=== PATIENT | female | born 1980 | race Caucasian/White ===

== ENCOUNTER 2018-06-18 13:23 | Emergency (ER) | payer MEDICAID, SELFPAY ==
[2018-06-18 13:24] VITALS: BP 128/74; PULSE 82; RESP 18; TEMP 36.7; O2SAT 98; BMI 29.4
[2018-06-18 13:33] VITALS: BP 133/82; PULSE 81; RESP 16; O2SAT 96
--- NOTE | 2018-06-18 13:41 | ED.VISSUMM ---
- ER Visit Summary Date of Service: 06/18/18 Chief Complaint: Back pain History of Present Illness: The patient is a 37 F who meant to lift a basket of laundry and felt a pop in her lower back. She has had pain since that time. Incident occurred just prior to arrival. She has no anterior abdominal pain. Pain does not radiate into her legs. She has no problems with bowel or bladder control. Physical Examination: Vital signs are unremarkable. Patient sitting upright in bed no acute distress. Head neck examination is unremarkable. Heart is regular rate and rhythm. Lung sounds are clear. Abdomen is soft nontender. No palpable masses. Back examination reveals no thoracic or lumbar midline tenderness. She does have reproducible tenderness in the bilateral lumbar paraspinal muscles. Straight leg raise in the seated position is negative. She has good strength and sensation. There is no pain with logroll of her legs. Palpable and equal distal pulses are noted. Test Results: [] Emergency Department Course and Treatment: Patient is given Naprosyn and Flexeril, with prescriptions for the same. At this time I do not think imaging is beneficial. Treatment Plan: [] Disposition: Discharge Impression: Lumbar paraspinal strain This note was generated with [employer] dictation software. It may contain incorrect words, spelling, and punctuation that were not noted in review of the chart prior to signing ED Disposition - Plan for ED Patient: Chief Complaint: Back Referrals: Agnes Torres MD [Primary Care Provider] -
--- NOTE | 2018-06-18 13:42 | ED.DEP ---
ED Disposition - Plan for ED Patient: Disposition: Home or Assisted Living Chief Complaint: Back Instructions: ED Sprain Strain Lumbar Prescriptions: Naproxen [Naprosyn] 500 mg PO BID PRN PRN #20 tablet PRN Reason: Pain Cyclobenzaprine [Flexeril] 10 mg PO TID PRN #20 tablet PRN Reason: Muscle Spasm Referrals: Agnes Torres MD [Primary Care Provider] - 1 Week if not improving
[2018-06-18] MEDS: Naproxen 500 MG Tablet PO (13:59)
[2018-06-18 14:00] VITALS: BP 133/94; PULSE 87; RESP 16; O2SAT 98
== END 2018-06-18 14:04 | disposition home or self-care (01) ==
LOC: ED 13:59
PROVIDERS: Emergency Provider Emergency Medicine; Family Provider Internal Medicine; PCP Internal Medicine
DX: S39.012A Strain of muscle, fascia and tendon of lower back, initial encounter (principal); X50.9XXA Other and unspecified overexertion or strenuous movements or postures, initial encounter; Y93.9 Activity, unspecified; Y92.9 Unspecified place or not applicable
CPT/HCPCS: 99282

== ENCOUNTER 2018-08-31 21:10 | Emergency (ER) | payer MEDICAID, SELFPAY ==
[2018-08-31 21:11] VITALS: BP 139/90; PULSE 80; RESP 16; TEMP 36.6; O2SAT 97; BMI 29.7
--- NOTE | 2018-08-31 21:25 | ED.DCSUM_ITS ---
- ER Visit Summary Date of Service: 08/31/18 Chief Complaint: [Headache] History of Present Illness: The patient is a 38 F [presents the emergency department with a headache that started about an hour ago. Patient rates her pain an 8 out of 10. Patient describes throbbing to both sides of her head and the top of her head. She currently rates her headache as an 8 out of 10. Patient states that she is vomited 3 or 4 times. Patient states the headache came on gradually. Patient does describe some photophobia. Patient states headache is typical of her migraines. Patient denies any falls or head injuries. She denies any recent illness. Patient states she has been in the ER before for these headaches and is gotten a migraine cocktail.] Physical Examination: [HEENT-PERRLA, EOMI. Cranial nerves II through XII grossly intact. TMs clear. Mucous membranes moist. No adenopathy. Cardiovascular-regular rate and rhythm without murmur or ectopy Lungs-clear to auscultation, chest wall stable without crepitus or subcu emphysema Abdomen-normoactive bowel sounds, soft, nontender, no rebound or rigidity, no peritoneal signs. Neuro logf-[id number]-wwom and heel walter testing within normal limits, negative Romberg, negative pronator drift, fundi benign Extremities-intact ?4, normal range of motion, normal pulses, atraumatic] Test Results: [None indicated] Emergency Department Course and Treatment: [Patient received a liter normal same fluid bolus as well as Reglan, Benadryl, and Toradol.] Patient's headache improved and now rates it a 4 out of 10. Patient is now anything further for pain at this time. Treatment Plan: [Patient follow-up with primary care physician next 3-5 days.] Disposition: [Discharged home in stable condition. Patient advised to return if worsening headache, difficulty with balance or speech, or condition should worsen anyway.] Impression: [Migrainous cephalgia] This note was generated with [employer] dictation software. It may contain incorrect words, spelling, and punctuation that were not noted in review of the chart prior to signing ED Disposition - Plan for ED Patient: Chief Complaint: Headache Referrals: Agnes Torres MD [Primary Care Provider] -
[2018-08-31] MEDS: 0.9% Normal Saline 1,000 ML 1000 ML IV (21:30)
[2018-08-31] MEDS: DiphenhydrAMINE 50 MG/ML Syringe 25 MG IV (21:34)
[2018-08-31] MEDS: Ketorolac 30 MG/ML Syringe IV (21:35)
[2018-08-31] MEDS: Metoclopramide 10 MG/2 ML Vial IV (21:35)
[2018-08-31 21:36] VITALS: RESP 14
--- NOTE | 2018-08-31 22:25 | ED.DEP ---
ED Disposition - Plan for ED Patient: Chief Complaint: Headache Instructions: ED Headache Migraine Referrals: Agnes Torres MD [Primary Care Provider] - 3-5 Days
== END 2018-08-31 22:33 | disposition home or self-care (01) ==
LOC: ED 21:23
PROVIDERS: Emergency Provider Emergency Medicine; Family Provider Internal Medicine; PCP Internal Medicine
DX: G43.909 Migraine, unspecified, not intractable, without status migrainosus (principal)
CPT/HCPCS: 96361; 96374; 96375; 99283; J7030

== ENCOUNTER 2018-12-28 15:03 | Emergency (ER) | payer MEDICAID, SELFPAY ==
[2018-12-28 15:04] VITALS: BP 141/88; PULSE 82; RESP 17; TEMP 36.4; O2SAT 100; BMI 30.2
--- NOTE | 2018-12-28 15:33 | ED.VISSUMM ---
- ER Visit Summary Date of Service: 12/28/18 Chief Complaint: Headache History of Present Illness: The patient is a 38 F with a headache that came on gradually over the past 2 days. It is severe. Patient tried taking Excedrin and her amitriptyline, with no improvement. She has a history of migraines. Denies any new symptoms or historical features. No blood thinners or trauma. No fevers. Associated with nausea. Physical Examination: Afebrile and vital signs unremarkable. Patient is alert and oriented no acute distress. Sitting in a dark room. HEENT exam unremarkable. Cranial nerves grossly intact. Neck nontender with good range of motion. Heart regular. Lungs clear. Extremities nontender with no edema. Neurovascularly intact and symmetric x4. No focal or lateralizing neurologic abnormalities grossly. Test Results: None indicated Emergency Department Course and Treatment: Patient will be treated with migraine cocktail with Compazine, Benadryl, Toradol. No diagnostic testing or imaging is indicated. Patient will be reevaluated and discharged when improved. Treatment Plan: As above Disposition: Discharge Impression: 1. Acute cephalgia This note was generated with [employer] dictation software. It may contain incorrect words, spelling, and punctuation that were not noted in review of the chart prior to signing ED Disposition - Plan for ED Patient: Referrals: Agnes Torres MD [Primary Care Provider] -
--- NOTE | 2018-12-28 15:35 | ED.DEP ---
ED Disposition - Plan for ED Patient: Instructions: ED Cephalgia Unspecified Referrals: Agnes Torres MD [Primary Care Provider] -
[2018-12-28] MEDS: Ketorolac 30 MG/ML Syringe IV (15:42)
[2018-12-28] MEDS: proCHLORPERazine 10 MG/2 ML Vial IV (15:42)
[2018-12-28] MEDS: DiphenhydrAMINE 50 MG/ML Syringe IV (15:43)
[2018-12-28 16:19] VITALS: BP 125/74; PULSE 73; RESP 16; O2SAT 100
== END 2018-12-28 16:20 | disposition home or self-care (01) ==
LOC: ED 15:36
PROVIDERS: Emergency Provider Emergency Medicine; Family Provider Internal Medicine; PCP Internal Medicine
DX: R51 Headache (principal)
CPT/HCPCS: 96374; 96375; 99284; A4216

== ENCOUNTER 2019-04-16 15:42 | Emergency (ER) | payer MEDICAID, SELFPAY ==
[2019-04-16 15:43] VITALS: BP 132/80; PULSE 88; RESP 16; TEMP 36.6; O2SAT 100; BMI 29.5
[2019-04-16] MEDS: Ketorolac 30 MG/ML Syringe IM (17:42)
[2019-04-16] MEDS: DiphenhydrAMINE 50 MG/ML Syringe IM (17:45)
[2019-04-16] MEDS: proCHLORPERazine 10 MG/2 ML Vial IM (17:46)
--- NOTE | 2019-04-16 18:26 | ED.DCSUM_ITS ---
- ER Visit Summary Date of Service: 04/16/19 Chief Complaint: Headache History of Present Illness: The patient is a 38 F with a history of migraines who presents with a headache. The pain is bitemporal. She has had it for 4 days since a wake up. No other neurologic symptoms. She tried amitriptyline, but nothing seems to help. Denies trauma. Denies blood thinners. Denies fevers. Denies new neurologic symptoms. Physical Examination: Afebrile and vital signs unremarkable. Head and neck atraumatic. HEENT exam unremarkable. Cranial nerves normal. Heart regular. Lungs clear. Skin normal. No focal or lateralizing neurologic abnormalities. Test Results: None indicated Emergency Department Course and Treatment: Patient was treated with Compazine, Benadryl, Toradol. She had modest improvement and requested discharge. There is no indication for further testing or imaging. Patient will be discharged to follow-up with her outpatient doctor. Return for any new or worsening issues. Treatment Plan: As above Disposition: Discharge Impression: 1. Migraine This note was generated with [employer] dictation software. It may contain incorrect words, spelling, and punctuation that were not noted in review of the chart prior to signing ED Disposition - Plan for ED Patient: Referrals: Agnes Torres MD [Primary Care Provider] -
--- NOTE | 2019-04-16 18:28 | ED.DEP ---
ED Disposition - Plan for ED Patient: Instructions: ED, Migraine (Classical) Referrals: Agnes Torres MD [Primary Care Provider] -
[2019-04-16 18:33] VITALS: BP 124/80; PULSE 81; RESP 16; O2SAT 100
== END 2019-04-16 18:35 | disposition home or self-care (01) ==
LOC: ED 17:39
PROVIDERS: Emergency Provider Emergency Medicine; Family Provider Internal Medicine; PCP Internal Medicine
DX: G43.909 Migraine, unspecified, not intractable, without status migrainosus (principal)
CPT/HCPCS: 96372; 99282

== ENCOUNTER 2020-10-08 16:27 | Emergency (ER) | payer MEDICAID, SELFPAY ==
[2020-10-08 16:28] VITALS: BP 121/87; PULSE 82; RESP 14; TEMP 36.1; O2SAT 99; BMI 34.7
--- NOTE | 2020-10-08 16:48 | ED.VIS.HA ---
History of Present Illness Chief Complaint: Headache Informant: Patient Onset: Weeks - 1 Context: Gradual Timing: Continuous Quality: Similar Prior Headaches Location: bifrontal/bitemporal, today more right temporo-parietal Current Severity: Moderate Maximum Severity: Moderate Worsened by: light Relieved by: nothing Associated Symptoms: Nausea, Photophobia. Negative for: Fever, Vomiting, Sore Throat, Sinus Pressure, Numbness, Tingling, Preceding Aura, Visual Changes, Blurred Vision, Visual Loss Injury: - - no injury Narrative: Patient states she has a history of migraines like this and is having trouble getting this 1 to go away and stay away. 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 No recent illness, fevers, chills, cough, neck stiffness, confusion, or other new symptoms she is not used to with her headaches. - Past Medical History (1) Migraine headache Status: Chronic Past Medical History - Allergies and Home Meds Allergies/Adverse Reactions: Allergies No Known Allergies Allergy (Verified 10/08/20 16:30) Primary Care Physician: Agnes Torres MD [Primary Care Provider] - Surgical History: - - cyst drained. Lives: With Family Smoking Status: Never smoker - Family History Maternal Family History: Reports: Asthma, Hypertension, - - maternal grandma with dm Paternal Family History: Reports: Unknown Review of Systems General: Denies: Chills, Fever, Sweats Eyes: Reports: - - Photophobia. Denies: Visual changes - bilaterally, Diplopia ENT: Denies: Bilateral ear pain, Rhinorrhea, Sore throat Cardiovascular: Denies: Chest pain, Palpitations Respiratory: Denies: Dyspnea, Cough, Dyspnea on exertion Gastrointestinal: Reports: Nausea. Denies: Abdominal pain, Vomiting, Diarrhea, Melena, Hematochezia Genitourinary: Denies: Dysuria, Hematuria, Frequency Musculoskeletal: Denies: Back pain, Extremity Pain Skin: Denies: Rash, Wounds Neurological: Reports: Headache. Denies: Weakness, Numbness Physical Exam Vital Signs/Narrative: Vital Signs Temp Pulse Resp BP Pulse Ox 10/08/20 16:28 96.9 F L 82 14 121/87 H 99 Inital Vital Signs reviewed: Yes General: Well nourished, Well developed, - - Well-appearing no distress Head: NC, AT Eyes: Perrl, EOMI, - - Mild photophobia ENT: Moist mucous membranes, No rhinorrhea Neck: Supple, No Lymphadenopathy, Nontender, No Meningismus Cardiovascular: Regular rate, Regular rhythm, No murmurs Respiratory: No distress, CTA bilaterally, Chest nontender Abdomen: Soft, Nontender, Nondistended, Normal bowel sounds Back: Nontender, Normal Inspection Extremities: Nontender, No edema Skin: Normal color, No rash Neuro: Alert, Oriented x3, Cranial nerves II-XII grossly intact, Normal Strength, Normal Sensation, Normal Gait Psychological: Normal affect, Normal Mood Diagnostic/Tx/Re-eval - Medical Decision Making Benign exam. Neurologically intact. Patient was treated with Reglan and Toradol and states on reevaluation that her headache is resolved and she did not develop any EPS. Given appropriate discharge instructions. ED Disposition - Plan for ED Patient: Disposition: Home or Assisted Living Diagnosis: Migraine headache Instructions: ED, Migraine (Classical) Referrals: Agnes Torres MD [Primary Care Provider] - As Needed
[2020-10-08] MEDS: Ketorolac 30 MG/ML Syringe IV (17:16)
[2020-10-08] MEDS: Metoclopramide 10 MG/2 ML Vial IV (17:16)
[2020-10-08 18:19] VITALS: PULSE 76; RESP 16; O2SAT 97
== END 2020-10-08 18:22 | disposition home or self-care (01) ==
PROVIDERS: Emergency Provider Emergency Medicine; PCP Internal Medicine
DX: G43.909 Migraine, unspecified, not intractable, without status migrainosus (principal)
CPT/HCPCS: 96374; 96375; 99283; A4216

== ENCOUNTER 2020-11-27 20:01 | Emergency (ER) | payer MEDICAID, SELFPAY ==
[2020-11-27 20:02] VITALS: BP 162/99; PULSE 89; RESP 16; TEMP 36.6; O2SAT 100; BMI 36.7
--- NOTE | 2020-11-27 20:17 | ED.DCSUM_ITS ---
- ER Visit Summary Date of Service: 11/27/20 Chief Complaint: Headache History of Present Illness: The patient is a 40 F presenting with headache. Patient states this started 2 to 3 days ago. Headache was gradual in onset. She has a history of migraine headaches and this feels similar to her previous migraines. She denies fever or neck pain. Denies nausea or vomiting. She complains of pain to the right side of her head. No recent trauma. She has tried Excedrin Migraine at home. She denies other complaints. Physical Examination: Vitals are stable. Patient is afebrile. Alert no acute distress. HEENT exam is unremarkable. Neck is supple. No meningismus Lungs are clear and equal bilaterally. Heart is regular rate and rhythm. Abdomen is soft nontender nondistended. Extremities are unremarkable. Skin is warm and dry. No focal neurologic deficit. Remainder of exam is unremarkable. Emergency Department Course and Treatment: Patient was given Reglan, Benadryl, and Toradol IV. On reevaluation, patient is feeling much improved. She is advised to follow-up with her primary care physician. Advised return to the ED for worsening complaints. Disposition: Discharge home Impression: Headache This note was generated with [employer] dictation software. It may contain incorrect words, spelling, and punctuation that were not noted in review of the chart prior to signing ED Disposition - Plan for ED Patient: Instructions: ED Headache Unspecified Referrals: Agnes Torres MD [Primary Care Provider] -
--- NOTE | 2020-11-27 20:19 | ED.DEP ---
ED Disposition - Plan for ED Patient: Instructions: ED Headache Unspecified Referrals: Agnes Torres MD [Primary Care Provider] -
[2020-11-27] MEDS: Metoclopramide 10 MG/2 ML Vial 5 MG IV (20:22)
[2020-11-27] MEDS: Ketorolac 15 MG/ML Vial IV (20:23)
[2020-11-27] MEDS: DiphenhydrAMINE 50 MG/ML Syringe 25 MG IV (20:24)
[2020-11-27 21:42] VITALS: BP 128/78; PULSE 78; RESP 18; TEMP 36.6; O2SAT 97
== END 2020-11-27 21:52 | disposition home or self-care (01) ==
LOC: ED 20:48
PROVIDERS: Emergency Provider Emergency Medicine; PCP Internal Medicine
DX: R51.9 Headache, unspecified (principal)
CPT/HCPCS: 99283; A4216

== ENCOUNTER 2021-03-06 16:09 | Emergency (ER) | payer MEDICAID, SELFPAY ==
[2021-03-06 16:10] VITALS: BP 150/95; PULSE 89; RESP 18; TEMP 35.8; BMI 34.2
--- NOTE | 2021-03-06 16:48 | EDS_ITS ---
HPI History of Present Illness Chief Complaint: Headache Informant: patient Narrative Narrative: 40-year-old female presents with migraine headache. Symptoms began approximately 2 days ago left temporal. She states it started off very gradual but has intensified today. She notes nausea and light sensitivity. She notes some phonophobia. No fevers or chills. No neurologic deficits. She denies any preceding aura. She takes amitriptyline daily for the prevention of migraines. Her last ED visit was in November. She states her symptoms today are very typical for her migraines. No recent trauma [facility] Medical History Migraine Home Medications [id number] [Excedrin Migraine Caplet] 1 ea PO DAILY PRN 06/18/18 [History Last Taken Unknown] cetirizine [Zyrtec] 10 mg PO DAILY 06/18/18 [History Last Taken Unknown] amitriptyline 30 mg PO QHS 04/16/19 [History Last Taken Unknown] Allergy/AdvReac Type Severity Reaction Status Date / Time No Known Allergies Allergy Verified 03/06/21 16:12 no surgical history (Noncontributory) Social History (Updated 03/06/21 @ 16:[address] Vargas Puente DO) Smoking Status: Never smoker substance use type: does not use ROS ROS ED Constitutional Constitutional ED: Denies chills or weight loss Eyes Eyes: Reports other Details: Light sensitivity ; Denies change in vision or diplopia ENT ENT ED: Reports other Details: Phonophobia ; Denies ear pain, rhinorrhea or sore throat Cardiovascular Cardiovascular: Denies chest pain, orthopnea, palpitations or racing heartbeat Respiratory/Chest Respiratory/Chest: Denies cough, dyspnea or orthopnea Gastrointestinal Gastrointestinal: Denies abdominal pain, diarrhea, nausea or vomiting Genitourinary Genitourinary ED: Denies dysuria, hematuria or urinary frequency Musculoskeletal Musculoskeletal: Denies arthralgias or myalgias Integumentary Denies abscess or rash Neurologic Neurologic: Reports headache(s); Denies weakness Psychiatric Psychiatric: Denies anxiety, depression, suicidal ideation or suicidal thoughts Endocrine Endocrinology: Denies polydipsia, polyphagia or polyuria Allergic/Immunologic Allergic/Immunologic ED: Denies mouth swelling, tongue swelling or urticaria EXAM Physical Exam Narrative Exam Narrative: Very pleasant 40-year-old female laying in a darkened room. She is conversant. Const Vital Signs: 03/06/21 16:10 Temperature 96.5 F L Temperature Source Temporal Pulse Rate 89 Respiratory Rate 18 Blood Pressure 150/95 H Blood Pressure Mean 113 Oxygen Delivery Method Room Air Positive well nourished and well developed General Appearance ED: well developed HEENT Reports normocephalic, head/scalp atraumatic and moist mucous membranes Eyes PERRL and EOMs intact bilaterally Neck no lymphadenopathy, supple and no JVD Resp normal respiratory effort and clear to auscultation bilaterally Cardio regular rate, regular rhythm and no murmurs GI normal to inspection, nondistended, normoactive bowel sounds and non-tender Palpation: soft Back/Spine no CVA tenderness and normal ROM Extremity normal to inspection General Extremety ED: Negative for edema General Extremity: Negative for edema Neuro oriented x3 and CN's II-XII intact bilaterally Sensorium / Orientation: alert Motor Exam: strength 5/5 throughout Psych mental status grossly normal Mood & Affect: Negative for depressed or tearful Skin no rashes or lesions noted and no wounds MDM MDM MDM Narrative Medical decision making narrative: Patient received Toradol, Reglan, and Benadryl as well as IV fluids. Upon receipt Andrzej assessment she is feeling better. Okay to give her dose of Solu-Medrol. Would recommend continued Excedrin at home. She may wish to discuss abortive therapies with her doctor. Discharge Plan Triage Chief Complaint: Headache ED Provider: Vargas Puente Dx/Rx/DC Orders Clinical Impression: Migraine headache Instructions: ED, Migraine (Classical) Prescriptions: No Action Excedrin Migraine 1 EACH tablet 1 ea PO DAILY PRN (Reason: Migraine Symptoms) RF: 0 Zyrtec 10 MG capsule 10 mg PO DAILY RF: 0 amitriptyline 10 MG tablet 30 mg PO QHS RF: 0 Primary Care Provider: Agnes Torres Referrals: Agnes Torres MD [Primary Care Provider] - As Needed Disposition Disposition: Home, self care
[2021-03-06] MEDS: DiphenhydrAMINE 50 MG/ML Syringe 25 MG IV (17:26)
[2021-03-06] MEDS: Ketorolac 30 MG/ML Syringe IV (17:26)
[2021-03-06] MEDS: 0.9% Normal Saline 1,000 ML 999 ML IV (17:26)
[2021-03-06] MEDS: Metoclopramide 10 MG/2 ML Vial IV (17:26)
[2021-03-06] MEDS: MethylPREDNISolone 125 MG/2 ML Vial IV (18:20)
[2021-03-06 18:56] VITALS: BP 126/68; PULSE 63; RESP 16; O2SAT 100
== END 2021-03-06 19:00 | disposition home or self-care (01) ==
PROVIDERS: Emergency Provider Emergency Medicine; PCP Internal Medicine
DX: G43.909 Migraine, unspecified, not intractable, without status migrainosus (principal); Z79.82 Long term (current) use of aspirin; Z79.899 Other long term (current) drug therapy
CPT/HCPCS: 96361; 96374; 96375; 99283; J7030; A4216

== ENCOUNTER 2021-12-20 11:53 | Emergency (ER) | payer MEDICAID, SELFPAY ==
[2021-12-20 11:53] VITALS: BP 190/95; PULSE 93; RESP 18; TEMP 35.8; O2SAT 99; BMI 32.8
--- NOTE | 2021-12-20 12:09 | ED.VIS.CHEST ---
HPI History of Present Illness Chief Complaint: Chest Pain Informant: patient Onset/Context/Timing Onset: Today Activity at onset: sudden and sleep Timing: Continuous Quality: Positive for Aching and Sharp Location: Substernal Worsened By: Breathing Relieved By: Nothing Associated Symptoms: Positive for Dyspnea and Acid Reflux; Negative for Nausea, Vomiting, Diaphoresis, Cough, Fever, Lightheadedness and Palpitations Narrative Narrative: Patient presents with chest pain that began approximately 12 hours prior to arrival. Patient states it began rather suddenly. Patient states it has been constant. Patient describes her pain as sharp and aching. Patient states the pain is over the substernal area. Patient states it is sometimes worse with deep breathing. Patient states nothing makes it better. Patient admits to some mild shortness of breath because it hurts to take a deep breath. Patient felt some reflux symptoms when the pain began. Patient denies any nausea or vomiting. Patient denies any diaphoresis. Patient denies any lightheadedness or dizziness. CVD Risk Factors: Positive for Hypertension; Negative for Diabetes, Hypercholesterolemia, Family History 1' </=55 and Smoking PE Risk Factors: Negative for Recent Travel/Surgery, Recent Immobilization, Prior DVT or PE, Cancer and OCP + Smoking + >/=35 PFSH PFSH Medical History Hypertension Migraine Home Medications cetirizine [Zyrtec] 10 mg PO DAILY 06/18/18 [History Last Taken Unknown] amlodipine 2.5 mg PO DAILY 12/20/21 [History Last Taken Unknown] topiramate 25 mg PO QHS 12/20/21 [History Last Taken Unknown] Allergy/AdvReac Type Severity Reaction Status Date / Time No Known Allergies Allergy Verified 12/20/21 11:55 Surgical History no surgical history no surgical history Social History Smoking Status: Never smoker substance use type: does not use ROS ROS ED Constitutional Constitutional ED: Denies chills or fever(s) Eyes Eyes: Denies blurry vision or change in vision ENT ENT ED: Denies rhinorrhea or sore throat Cardiovascular Cardiovascular: Reports chest pain; Denies palpitations Respiratory/Chest Respiratory/Chest: Reports dyspnea; Denies cough Gastrointestinal Gastrointestinal: Denies abdominal pain, nausea or vomiting Genitourinary Genitourinary ED: Denies dysuria or hematuria Musculoskeletal Musculoskeletal: Denies back pain or neck pain Integumentary Denies abscess or rash Neurologic Neurologic: Denies headache(s) or weakness Allergic/Immunologic Allergic/Immunologic ED: Denies mouth swelling or urticaria EXAM Physical Exam Const Vital Signs: 12/20/21 11:53 12/20/21 12:01 12/20/21 12:27 Temperature 96.5 F L Temperature Source Temporal Pulse Rate 93 Respiratory Rate 18 Respiratory Effort Normal Blood Pressure 190/95 H Blood Pressure Mean 126 Pulse Ox 99 98 Oxygen Delivery Method Room Air Room Air 12/20/21 13:23 12/20/21 14:12 Temperature Temperature Source Pulse Rate 84 83 Respiratory Rate 18 Respiratory Effort Blood Pressure 149/81 H 144/94 H Blood Pressure Mean 103 110 Pulse Ox 100 Oxygen Delivery Method Room Air Positive well nourished and well developed General Appearance ED: well developed and NAD HEENT normocephalic and atraumatic Eyes PERRL and EOMs intact bilaterally Neck supple and no JVD Chest Wall palpation of chest normal Resp normal respiratory effort and clear to auscultation bilaterally Effort and Inspection: Negative for respiratory distress Cardio regular rate, regular rhythm and no murmurs GI normal to inspection, nondistended, normoactive bowel sounds, soft to palpation, non-tender and non-distended Extremity normal to inspection General Extremety ED: Negative for edema or tenderness General Extremity: Negative for edema Neuro oriented x3, CN's II-XII intact bilaterally and no sensory deficits noted Sensorium / Orientation: awake and alert Motor Exam: strength 5/5 throughout Psych mental status grossly normal Heart Score History: Slightly/Non-Suspicious ECG: Normal Age: </= 45 years Risk Factors: 1 or 2 Risk Factors Troponin: </= Normal Limit Score: 1 MDM MDM MDM Narrative Medical decision making narrative: Patient was given aspirin. EKG was obtained. On my interpretation, it showed a normal sinus rhythm with a rate of 92. MN interval, QRS interval, and QTc intervals were all normal. [place] was normal. There are no acute ST or T wave changes. There are no prior EKGs available for comparison. Portable 1 view chest x-ray was obtained. On my interpretation, lung polanco are clear. There is normal cardiac silhouette. Bony thorax is normal. There is no acute process noted. Radiologist also interpreted the x-ray and agrees. CBC was within normal limits. Basic metabolic profile was within normal limits. High-sensitivity troponin was less than 3. Patient has a HEART score of 1. Patient was advised that this is low risk for acute cardiac event. Patient was instructed to follow-up with her primary care physician in 3 to 5 days. Patient understood and was agreeable with the plan. All questions were answered. Lab Data Attestation: I reviewed the patient's lab results. Labs: Laboratory Results - last 24 hr 12/20/21 12/20/21 12:00 12:00 WBC 10.3 RBC 4.87 Hgb 15.2 H Hct 44.4 MCV 91.2 MCH 31.2 MCHC 34.2 RDW Std Deviation 41.8 RDW Coeff of [place] 12.5 Plt Count 338 MPV 8.1 Immature Gran % (Auto) 0.400 Neut % (Auto) 52.6 Lymph % (Auto) 39.7 [place] % (Auto) 4.5 Eos % (Auto) 2.4 Baso % (Auto) 0.4 Absolute Neuts (auto) 5.4 Absolute Lymphs (auto) 4.07 Nucleated RBC % 0 Sodium 139 Potassium 3.3 L Chloride 107 Carbon Dioxide 26.0 Anion Gap 6 BUN 13 Creatinine 0.96 Estim Creat Clear Calc 82.55 Est GFR (MDRD) Af Amer 82 Est GFR (MDRD) Non-Af 68 BUN/Creatinine Ratio 13.6 Glucose 99 Calcium 9.1 Troponin I High Sens < 3 L Radiography Chest X-Ray - ED: 1 View, Read by ED Physician, Read by Radiologist and No Acute Disease Diagnostic Testing: Clinical Impression(s) from Imaging Studies Chest X-Ray 12/20/21 12:14 IMPRESSION: No radiographic evidence of acute cardiopulmonary disease. at 1334 Reported and signed by: Ileana Leblanc MD Electronically Signed: Ileana Leblanc MD at 13:33 EDT , EKG Initial EKG: Attestation: I personally reviewed and interpreted this EKG as follows: Interpretation: Sinus Rhythm (92) and No Acute Injury Pattern Prior EKG tracings: not available for review Discharge Plan Triage Chief Complaint: Chest Pain ED Provider: Nilay Pinedo Dx/Rx/DC Orders Clinical Impression: Chest pain of uncertain etiology, History of hypertension Instructions: ED Chest Pain, Uncertain Cause Prescriptions: No Action Zyrtec 10 MG capsule 10 mg PO DAILY RF: 0 topiramate 25 mg tablet 25 mg PO QHS RF: 0 amlodipine 2.5 mg tablet 2.5 mg PO DAILY RF: 0 Primary Care Provider: Agnes Torres Referrals: Agnes Torres MD [Primary Care Provider] - 3-5 Days Disposition Disposition: Home, Self Care
--- NOTE | 2021-12-20 12:14 | EKG12_ITS ---
Test Reason : Blood Pressure : / mmHG Vent. Rate : 092 BPM Atrial Rate : 092 BPM P-R Int : 150 ms QRS Dur : 102 ms QT Int : 382 ms P-R-T Axes : 045 -12 052 degrees QTc Int : 472 ms Normal sinus rhythm Normal ECG Confirmed by MANNY LISA MD ([id number]), slot editor JOANNE NOVA ([id number]) on 12/22/2021 10:38:25 AM Referred By: JOSE E Confirmed By:MANNY LISA MD
--- NOTE | 2021-12-20 12:14 | RAD_ITS ---
HISTORY: chest pain. TECHNIQUE: XR Chest 1 View. # of images incl. paperwork: 1. COMPARISON: 01/30/2014. FINDINGS: CARDIOMEDIASTINAL STRUCTURES: Cardiac silhouette not enlarged. Mediastinal contour unremarkable. LUNGS: Minimal bibasilar atelectasis. PLEURA: No pleural effusion or pneumothorax. OSSEOUS STRUCTURES: Unremarkable. RAD/Chest 1 View (Portable) IMPRESSION: No radiographic evidence of acute cardiopulmonary disease. at 1334 Reported and signed by: Ileana Leblanc MD Electronically Signed: Ileana Leblanc MD at 13:33 EDT ,
[2021-12-20] MEDS: Aspirin 81 MG TAB.CHEW 324 MG PO (12:25)
[2021-12-20 12:27] VITALS: O2SAT 98
[2021-12-20 12:27] LABS: Absolute Lymphocyte Count 4.07 X10^3/uL (0.83-4.51); Absolute Neutrophil Count 5.4 X10^3/uL (2.0-7.7); Basophil# 0.04 X10^3/uL; Basophil% 0.4 % (0-1); Eosinophil# 0.25 X10^3/uL; Eosinophils% 2.4 % (0-5); Hematocrit 44.4 % (37-47); Hemoglobin 15.2 g/dL (12.0-15.0); Lymphocyte # 4.07 X10^3/ul (0.83-4.51); Lymphocyte % 39.7 % (19-41); Mean Corp Hgb Conc 34.2 g/dL (32-36); Mean Corpuscular Hgb 31.2 pg (27.0-32.0); Mean Corpuscular Volume 91.2 fL (81-99); Mean Platelet Vol. 8.1 fl (6.2-12.0); Monocyte# 0.46 X10^3/uL; Monocyte% 4.5 % (0-10); NRBC Flagged by Analyzer 0 % (0-5); Neutrophil % 52.6 % (47-70); Platelet Count 338 K/mm3 (150-450); RBC Distribution Width CV 12.5 % (11.6-14.6); RBC Distribution Width SD 41.8 fl (35.1-43.9); Red Blood Count 4.87 M/mm3 (4.2-5.4); White Blood Count 10.3 K/mm3 (4.4-11.0)
[2021-12-20 12:45] LABS: Anion Gap 6 (5-15); BUN 13 mg/dL (7-18); BUN/Creat Ratio 13.6 RATIO (10-20); Calcium,Total 9.1 mg/dL (8.5-10.1); Chloride 107 mmol/L (98-107); Creatinine, Serum 0.96 mg/dL (0.55-1.02); EST Glomerular Filtration Rate 68 mL/min (>60); Est Glom Filt Rate - Afr Amer 82 mL/min (>60); Estimated Creatinine Clearance 82.55 ml/min; Glucose 99 mg/dL (74-106); Potassium 3.3 mmol/L (3.5-5.1); Sodium Level 139 mmol/L (136-145); Troponin-I HS < 3 pg/mL (3.0-54.0)
[2021-12-20 13:23] VITALS: BP 149/81; PULSE 84
[2021-12-20 14:12] VITALS: BP 144/94; PULSE 83; RESP 18; O2SAT 100
[2021-12-20 14:29] VITALS: BP 144/94; PULSE 74; RESP 16; O2SAT 98
[2021-12-20 14:31] LABS: Troponin-I HS < 3 pg/mL (3.0-54.0)
== END 2021-12-20 14:33 | disposition home or self-care (01) ==
PROVIDERS: Emergency Provider Emergency Medicine; PCP Internal Medicine; Visit Provider Emergency Medicine
DX: R07.9 Chest pain, unspecified (principal); I10 Essential (primary) hypertension; R06.02 Shortness of breath; K21.9 Gastro-esophageal reflux disease without esophagitis; Z79.899 Other long term (current) drug therapy
CPT/HCPCS: 71045; 80048; 84484; 85025; 93005; 99285; A4216